=== PATIENT | male | born 2000 | race Caucasian/White ===

== ENCOUNTER 2024-12-25 21:03 | Emergency (ER) | payer MEDICAID ==
[2024-12-25 22:10] VITALS: RESP 20; TEMP 96.7
[2024-12-25 23:02] LABS: Appearance Clear (Clear); Bacteria None Seen /HPF (None Seen); Bilirubin Negative (Negative); Blood NHT (Negative); Epithelial Cells None Seen /HPF (None Seen); Glucose, Urine Negative (Negative); Hyaline Casts NONE SEEN /LPF (0-2); Ketones Trace (Negative); Leukocyte Esterase Negative (Negative); Nitrite Negative (Negative); Protein,Urine Dip Negative (Negative); WBC 0-2 /HPF (0-5)
[2024-12-25] MEDS ORDERED: Sodium Chloride 0.9% 1000 ML 1,000 ML ONE (23:07)
[2024-12-25] MEDS ORDERED: Zofran 4 MG/2 ML VIAL ONE (23:07)
[2024-12-25] MEDS ORDERED: MORPHINE SULFATE 4 MG INJ ONE (23:07)
[2024-12-25 23:08] LABS: Absolute Neutrophil Ct (ANC) 7.23 x10^3/uL (1.78-5.38); BASOPHIL % 0.4 % (0.2-1.2); Basophil (Absolute #) 0.04 x10^3/uL (0.01-0.08); Eosinophil % 0.9 % (0.8-7.0); Hemoglobin 13.9 g/dL (13.7-17.5); IMMATURE GRAN # 0.02 x10^3u/L (0.001-0.031); IMMATURE GRAN % 0.2 % (0.001-0.429); Lymphocyte (Absolute #) 2.28 x10^3/uL (1.32-3.57); Lymphocytes % 21.3 % (21.8-53.1); Mean Cell Volume 92.1 fL (79.0-92.2); Mean Corpuscular Hemoglobin 31.2 pg (25.7-32.2); Mean Corpuscular Hgb Concent. 33.9 g/dL (32.3-36.5); Mean Platelet Volume 8.6 fL (9.4-12.4); Monocyte (Absolute #) 1.02 x10^3/uL (0.30-0.82); Monocytes % 9.5 % (5.3-12.2); Neutrophil % 67.7 % (34.0-67.9); Platelet Count 313 x10^3/uL (163-337); Red Blood Count 4.45 x10^6/uL (4.63-6.08); Red Cell Distribution Width 13.6 % (11.6-14.4); White Blood Count 10.7 x10^3/uL (4.23-9.07)
[2024-12-25] MEDS: MORPHINE SULFATE 4 MG INJ IV ONE (23:10)
[2024-12-25] MEDS: Sodium Chloride 0.9% 1000 ML 1,000 ML IV STA (23:10)
[2024-12-25] MEDS: Zofran 4 MG/2 ML VIAL IV ONE (23:10)
[2024-12-25 23:21] LABS: ALBUMIN 4.6 g/dL (3.5-5.0); ANION GAP 15.6 MEQ/L (5-15); BILIRUBIN,TOTAL 0.7 mg/dL (0.2-1.3); Calcium 9.8 mg/dL (8.4-10.2); Creatinine 1 0.77 mg/dL (0.66-1.25); EST GLOMERULAR FILTRATION RATE 126.6 ML/MIN; Potassium 3.7 mmol/L (3.5-5.1); Total Protein 7.7 g/dL (6.3-8.2)
--- NOTE | 2024-12-25 23:58 | ERPHSYRPT ---
- History of Present Illness Time Seen by Provider: 12/25/24 22:11 Historian: patient Exam Limitations: no limitations Patient Subjective Stated Complaint: pt states that he has been having left abdomen pain for the past 3 days Triage Nursing Assessment: pt ambulated into the er; pt is axo x4; c/o abd pain; pt states 8/10 pain to LUQ; abd obese, soft, tender; hypoactive bowel sounds in all quads; c/o nausea, denies vomiting and diarrhea; last BM 12/23/24; skin PDW; no respiratory distress present; hypertensive Physician History: 24 years old male presented in the ER with complaints of left-sided abdominal pain more in the left upper abdomen with associated nausea vomiting for the last 3 days. Patient report multiple episodes of nonprojectile, nonbilious vomiting without hematemesis. His vomiting is better today but still have nausea. Rates 6-7/10 intensity dull aching pain intermittently with no significant aggravating or relieving factors with associated nausea now. No fever or chills reported. Denies any known sick contact. Not able to hold much down, feels weak fatigued tired and dehydrated. Allergies/Adverse Reactions: No Known Drug Allergies Allergy (Unverified 12/25/24 22:00) Hx Tetanus, Diphtheria Vaccination/Date Given: Yes Hx Influenza Vaccination/Date Given: No Hx Pneumococcal Vaccination/Date Given: No Travel Risk - International Travel Have you traveled outside of the country in past 3 weeks: No - Emerging Infectious Disease Are you exhibiting symptoms associated with any current EIDs: Yes Symptoms: Abdominal Pain - Review of Systems Constitutional: Fatigue Eyes: No Symptoms Ears, Nose, & Throat: No Symptoms Respiratory: No Symptoms Cardiac: No Symptoms Abdominal/Gastrointestinal: Abdominal Pain, Nausea, Vomiting Genitourinary Symptoms: No Symptoms Musculoskeletal: No Symptoms Skin: No Symptoms Neurological: No Symptoms Psychological: No Symptoms Endocrine: No Symptoms Hematologic/Lymphatic: No Symptoms - Past Medical History Pertinent Past Medical History: No - Past Surgical History Past Surgical History: Yes Musculoskeletal: Other Other Surgical History: surgery to left forearm - Social History Smoking Status: Current every day smoker How long have you smoked: 11 Exposure to second hand smoke: Yes Drug Use: marijuana - Social Determinants of Health Will the patient participate in the screening: Yes Do you worry about a steady place to live?: No Do you have any problems with any of the following?: No known problems In the past 12 months,have you had to go without utilities?: No Transportation Issues: No Has anyone in your support network made you feel unsafe?: No Have you or anyone in your house had to go w/o enough food: No - Nursing Vital Signs Nursing Vital Signs: Initial Vital Signs Temperature 96.7 F 12/25/24 22:02 Pulse Rate 109 H 12/25/24 22:02 Respiratory Rate 20 12/25/24 22:02 Blood Pressure 161/120 12/25/24 22:02 O2 Sat by Pulse Oximetry 99 12/25/24 22:02 Pain Scale Pain Intensity 8 - Physical Exam General Appearance: no apparent distress, alert Eye Exam: PERRL/EOMI Neck Exam: normal inspection, non-tender, full range of motion Respiratory Exam: normal breath sounds, lungs clear Cardiovascular Exam: regular rate/rhythm, normal heart sounds Gastrointestinal/Abdomen Exam: soft, normal bowel sounds, tenderness (Mild tenderness left upper quadrant to deep palpation. Mild tenderness left lower quadrant. No guarding or rebound tenderness) Back Exam: normal inspection, normal range of motion Extremity Exam: normal inspection, normal range of motion, pelvis stable Neurologic Exam: alert, oriented x 3, cooperative Skin Exam: normal color SpO2 Interpretation: normal SpO2: 100 O2 Delivery: Room Air Ordered Tests: Active Orders 24 hr Category Date Time Status IV Insertion STAT Care 12/25/24 22:50 Active AMYLASE Stat Lab 12/25/24 23:05 Completed CBC W DIFF Stat Lab 12/25/24 23:05 Completed CMP Stat Lab 12/25/24 23:05 Completed LIPASE Stat Lab 12/25/24 23:05 Completed UA W/RFX UR CULTURE Stat Lab 12/25/24 22:45 Completed Medication Summary Discontinued Medications Generic Name Dose Route Start Last Admin Trade Name Freq PRN Reason Stop Dose Admin Sodium Chloride 1,000 mls @ 999 mls/hr 12/25/24 22:50 12/26/24 00:14 Sodium Chloride 0.9% 1000 Ml IV 12/25/24 23:50 Infused .Q1H1M STA Infusion Sodium Chloride Confirm 12/25/24 23:07 Sodium Chloride 0.9% 1000 Ml Administered 12/25/24 23:08 Dose 1,000 mls @ ud .ROUTE .STK-MED ONE Morphine Sulfate 4 mg 12/25/24 22:50 12/25/24 23:10 Morphine Sulfate 4 Mg/Ml Injection IV 12/25/24 22:51 4 mg STAT ONE Administration Morphine Sulfate Confirm 12/25/24 23:07 Morphine Sulfate 4 Mg/Ml Injection Administered 12/25/24 23:08 Dose 4 mg .ROUTE .STK-MED ONE Ondansetron HCl 4 mg 12/25/24 22:50 12/25/24 23:10 Ondansetron Hcl 4 Mg/2 Ml Vial IV 12/25/24 22:51 4 mg STAT ONE Administration Ondansetron HCl Confirm 12/25/24 23:07 Ondansetron Hcl 4 Mg/2 Ml Vial Administered 12/25/24 23:08 Dose 4 mg .ROUTE .STK-MED ONE Lab/Rad Data: Laboratory Result Diagrams 12/25/24 23:05 12/25/24 23:05 Laboratory Results 12/25/24 12/25/24 12/25/24 Range/Units 23:05 23:05 22:45 WBC 10.7 H (4.23-9.07) x10^3/uL RBC 4.45 L (4.63-6.08) x10^6/uL Hgb 13.9 (13.7-17.5) g/dL Hct 41.0 (40.1-51.0) % MCV 92.1 (79.0-92.2) fL MCH 31.2 (25.7-32.2) pg MCHC 33.9 (32.3-36.5) g/dL RDW 13.6 (11.6-14.4) % Plt Count 313 (163-337) x10^3/uL MPV 8.6 L (9.4-12.4) fL Gran % 67.7 (34.0-67.9) % Immature Gran % (Auto) 0.2 (0.001-0.429) % Nucleat RBC Rel Count 0.0 (0.00-0.2) % Eos # (Auto) 0.10 (0.04-0.54) x10^3/uL Immature Gran # (Auto) 0.02 (0.001-0.031) x10^3u/L Absolute Lymphs (auto) 2.28 (1.32-3.57) x10^3/uL Absolute Monos (auto) 1.02 H (0.30-0.82) x10^3/uL Absolute Nucleated RBC 0.00 (0.00-0.012) x10^3u/L Lymphocytes % 21.3 L (21.8-53.1) % Monocytes % 9.5 (5.3-12.2) % Eosinophils % 0.9 (0.8-7.0) % Basophils % 0.4 (0.2-1.2) % Absolute Granulocytes 7.23 H (1.78-5.38) x10^3/uL Basophils # 0.04 (0.01-0.08) x10^3/uL Sodium 136 (135-145) mmol/L Potassium 3.7 (3.5-5.1) mmol/L Chloride 96 L (98-107) mmol/L Carbon Dioxide 28 (22-30) mmol/L Anion Gap 15.6 H (5-15) MEQ/L BUN 12 (9-20) mg/dL Creatinine 0.77 (0.66-1.25) mg/dL Estimated GFR 126.6 ML/MIN Glucose 115 H (74-106) mg/dL Calcium 9.8 (8.4-10.2) mg/dL Total Bilirubin 0.70 (0.2-1.3) mg/dL AST 42 (17-59) U/L ALT 37 (0-50) U/L Alkaline Phosphatase 92 (38-126) U/L Serum Total Protein 7.7 (6.3-8.2) g/dL Albumin 4.6 (3.5-5.0) g/dL Amylase 70 (30-110) U/L Lipase 208 (23-300) U/L Urine Color Dark Yellow (Yellow) Urine Appearance Clear (Clear) Urine pH 7.0 (4.6-8.0) Ur Specific [place] 1.020 (1.005-1.030) Urine Protein Negative (Negative) Urine Glucose (UA) Negative (Negative) mg/dL Urine Ketones Trace A (Negative) Urine Blood NHT (Negative) Urine Nitrite Negative (Negative) Urine Bilirubin Negative (Negative) Urine Urobilinogen 1.0 A (0.2) mg/dL Ur Leukocyte Esterase Negative (Negative) U Hyaline Cast (Auto) NONE SEEN (0-2) /LPF Urine Microscopic RBC 3-5 (0-5) /HPF Urine Microscopic WBC 0-2 (0-5) /HPF Ur Epithelial Cells None Seen (None Seen) /HPF Urine Bacteria None Seen (None Seen) /HPF Urine Culture Reflexed NO (NO) - Progress Progress: improved, re-examined Progress Note: 12/26/24 00:15 Differential diagnosis includes but not limited to: GERD with esophagitis/acid peptic disease/gastroenteritis/colitis/obstruction/perforation/pancreatitis 24 years old is evaluated in the ER for left upper abdominal pain and nausea vomiting for the last 3 days with improvement in vomiting but still nauseated and belly pain He is given fluids and symptomatic treatment, on reevaluation he is resting comfortably. Has no peritoneal signs on repeated eval. Workup showed white count of 10, chemistries fairly unremarkable with normal pancreatic enzymes. No UTI. I believe patient has viral gastroenteritis, recommended increase hydration, Tylenol/Zofran as needed and outpatient follow-up. Discussed signs symptoms of worsening and return to ER which he seems understanding. Based on abdominal exam and lab work, do not think patient needs imaging or any other workup and is stable for discharge. Complexity of problems addressed: Moderate acute Complexity of data reviewed/analyzed: Moderate Risk of complication: Low Counseled pt/family regarding: lab results, diagnosis, need for follow-up Medical Desision Making - Diagnostic Testing Diagnostic test were ordered, analyzed, and reviewed by me: Yes - Risk of complications The pt has a mod risk of morbidity or mortality based on: Need for prescription drug management - Departure Departure Disposition: Home Clinical Impression: Acute gastroenteritis Condition: Stable Critical Care Time: No Referrals: DOCTOR,NO FAMILY [Primary Care Provider, UNKNOWN] - Follow up with PCP 1 day Instructions: Severe Abdominal Pain, Adult (DC) Additional Instructions: Take Tylenol/Zofran as needed. Drink plenty of fluids. Follow-up with primary care for reevaluation. Return to ER for any worsening. Prescriptions: Celecoxib [Celebrex] 200 mg PO DAILY PRN PRN 10 Days #10 cap PRN Reason: Pain Ondansetron ODT 4 MG [Zofran Odt 4 mg] 1 ea PO QIDPRN PRN #7 tablet PRN Reason: n/v
[2024-12-26 00:28] VITALS: BP 160/104; PULSE 69; O2SAT 97
== END 2024-12-26 00:36 | disposition home or self-care (01) ==
LOC: ED 21:03
DX: A08.4 Viral intestinal infection, unspecified (principal); R11.2 Nausea with vomiting, unspecified; R10.12 Left upper quadrant pain; Z79.899 Other long term (current) drug therapy; Z72.0 Tobacco use
CPT/HCPCS: 36415; 80053; 81001; 82150; 83690; 85025; 96361; 96374; 96375; 99284; J2270; J2405